=== PATIENT | female | born 1955 | race African-American/Black ===

== ENCOUNTER 2019-09-16 15:51 | Inpatient (IN) | payer MEDICAID ==
[~2019-09-16] VITALS: Ht 157.5 cm; Wt 21.8 kg
[2019-09-16] MEDS ORDERED: LORazepam 2 MG TABLET PO PRN (21:30)
[2019-09-16] MEDS ORDERED: ZOLPIDEM TARTRATE 10 MG TABLET PO PRN (21:30)
[2019-09-16 21:45] VITALS: BP 129/60
[2019-09-16] MEDS ORDERED: PNEUMOCOCCAL VACCINE POLYVALENT 0.5 ML VIAL [PPSV23] IM ONE (22:00)
[2019-09-17 00:31] VITALS: BP 111/71
[2019-09-17] MEDS ORDERED: MAG HYDROX/AL HYDROX/SIMETH ES 30 ML SUSPENSION UDCUP PO PRN (07:00)
[2019-09-17] MEDS ORDERED: MAGNESIUM HYDROXIDE SUSPENSION 30 ML UDCUP PO PRN (07:00)
[2019-09-17] MEDS ORDERED: PETROLATUM,WHITE 28 GM JELLY TP PRN (07:00)
[2019-09-17] MEDS ORDERED: CloNIDine HCL 0.1 MG TABLET PO PRN (07:00)
[2019-09-17] MEDS ORDERED: DOCUSATE SODIUM 100 MG CAPSULE PO PRN (07:00)
[2019-09-17] MEDS ORDERED: BENZOCAINE/MENTHOL LOZENGE MM PRN (07:00)
[2019-09-17] MEDS ORDERED: LOPERAMIDE HCL 2 MG CAPSULE PO PRN (07:00)
[2019-09-17] MEDS ORDERED: IBUPROFEN 600 MG TABLET PO PRN (07:00)
[2019-09-17] MEDS ORDERED: OMEPRAZOLE 20 MG CAPSULE PO PRN (07:00)
[2019-09-17] MEDS ORDERED: ALBUTEROL SULFATE HFA 90 MCG/PUFF 8 GM INHALER IH PRN (07:00)
[2019-09-17] MEDS ORDERED: BACITRACIN 28.4 GM OINTMENT TP PRN (07:00)
[2019-09-17] MEDS ORDERED: ONDANSETRON HCL 4 MG TABLET PO PRN (07:00)
[2019-09-17] MEDS ORDERED: ACETAMINOPHEN 325 MG TABLET PO PRN (07:00)
[2019-09-17 08:00] VITALS: BP 109/64
[2019-09-17 09:08] LABS: EOSINOPHILS % (AUTO) 4.9 % (1.0-6.0); HEMATOCRIT 31.7 % (36-46); HEMOGLOBIN 10.6 g/dL (12.0-16.0); LYMPHOCYTES # (AUTO) 3.3 K/uL (1.0-4.8); MEAN CORPUSCULAR HEMOGLOBIN 31.3 pg (26.0-34.0); MEAN CORPUSCULAR HGB CONC 33.5 G/dL (31.0-37.0); MEAN CORPUSCULAR VOLUME 93 fL (80-100); MONOCYTES # (AUTO) 0.3 K/uL (0.1-1.0); MONOCYTES % (AUTO) 5.6 % (2.0-9.0); NEUTROPHILS # (AUTO) 2.1 K/uL (1.8-7.7); NEUTROPHILS % (AUTO) 34.5 % (40.0-70.0); PLATELET COUNT (AUTO) 157 K/uL (150-450); RED CELL DISTRIBUTION WIDTH 13.9 % (11.5-14.5)
[2019-09-17] MEDS: MIDODRINE HCL 5 MG TABLET PO SCH ×2 (09:20→13:00)
[2019-09-17] MEDS: OLANZapine 5 MG RAPDIS TABLET PO SCH ×2 (09:21→20:39)
[2019-09-17] MEDS: ASPIRIN 81 MG EC TABLET PO SCH (09:21)
[2019-09-17 09:42] LABS: ALANINE AMINOTRANSFERASE 16 U/L (12-78); ALBUMIN 3.5 g/dL (3.4-5.0); ALKALINE PHOSPHATASE 57 U/L (46-116); ANION GAP 10 mmol/L (8-16); ASPARTATE AMINOTRANSFERASE 14 U/L (15-37); BILIRUBIN,TOTAL 0.4 mg/dL (0.1-1.0); CALCIUM, TOTAL 8.8 mg/dL (8.8-10.5); CARBON DIOXIDE 27 mmol/L (22-29); CHLORIDE 109 mmol/L (98-107); CHOL/HDL RATIO 2.7 (3.9-5.7); CHOLESTEROL 130 mg/dL (131-200); CREATININE 0.59 mg/dL (0.60-1.30); FREE T4 (FREE THYROXINE) 1.11 ng/dL (0.76-1.46); GLOMERULAR FILTR. RATE CALC > 60 mL/min (>60); GLUCOSE,RANDOM 80 mg/dL (70-110); HDL CHOLESTEROL 49 mg/dL (40-60); LDL CHOL (CALC.) 67 mg/dL (0-130); POTASSIUM 3.3 mmol/L (3.5-5.1); SODIUM SERUM 146 mmol/L (136-145); THYROID STIMULATING HORMONE 0.54 uIU/mL (0.36-3.74); TOTAL PROTEIN, SERUM 6.9 g/dL (6.4-8.2); TRIGLYCERIDES 71 mg/dL (15-150); UREA NITROGEN, BLOOD 5 mg/dL (7-18)
[2019-09-17] MEDS ORDERED: POTASSIUM CHLORIDE 20 MEQ ER TABLET PO ONE (14:45)
[2019-09-17 16:00] VITALS: BP 102/59
[2019-09-17] MEDS: MIRTAZAPINE 15 MG TABLET PO SCH (20:39)
[2019-09-18 07:26] LABS: MAGNESIUM 1.8 mg/dL (1.80-2.40); PHOSPHORUS 3.3 mg/dL (2.5-4.9); POTASSIUM 3.4 mmol/L (3.5-5.1)
[2019-09-18 08:00] VITALS: BP 109/63
[2019-09-18] MEDS: OLANZapine 5 MG RAPDIS TABLET PO SCH ×2 (09:45→20:25)
[2019-09-18] MEDS: ASPIRIN 81 MG EC TABLET PO SCH (09:45)
[2019-09-18] MEDS: MIRTAZAPINE 15 MG TABLET PO SCH (20:36)
[2019-09-18] MEDS ORDERED: PALIPERIDONE PALMITATE 234 MG/1.5 ML SYRINGE IM ONE (21:00)
[2019-09-19] MEDS: ASPIRIN 81 MG EC TABLET PO SCH (08:49)
[2019-09-19 10:51] VITALS: BP 99/60
[2019-09-19 16:00] VITALS: BP 115/58
[2019-09-19] MEDS: OLANZapine 5 MG RAPDIS TABLET PO SCH (20:25)
[2019-09-19] MEDS: MIRTAZAPINE 15 MG TABLET PO SCH (20:25)
[2019-09-20] VITALS: BP 126/55
[2019-09-20 08:00] VITALS: BP 106/67
[2019-09-20] MEDS: ASPIRIN 81 MG EC TABLET PO SCH (08:14)
[2019-09-20 16:00] VITALS: BP 97/59
[2019-09-20] MEDS: OLANZapine 5 MG RAPDIS TABLET PO SCH (20:06)
[2019-09-20] MEDS: MIRTAZAPINE 15 MG TABLET PO SCH (20:06)
[2019-09-21] MEDS: ASPIRIN 81 MG EC TABLET PO SCH (08:23)
[2019-09-21 08:41] VITALS: BP 111/50
[2019-09-21 09:37] VITALS: BP 111/50
[2019-09-21] MEDS ORDERED: MIRT-89 PO (15:10)
[2019-09-21] MEDS ORDERED: OLAN5TAB30 PO (15:10)
[2019-09-21 16:01] VITALS: BP 113/60
[2019-09-21] MEDS: MIRTAZAPINE 15 MG TABLET PO SCH (20:15)
[2019-09-21] MEDS: OLANZapine 5 MG RAPDIS TABLET PO SCH (20:15)
[2019-09-22 08:00] VITALS: BP 107/49
[2019-09-22] MEDS ORDERED: POTASSIUM CHLORIDE 20 MEQ ER TABLET PO ONE (08:15)
[2019-09-22] MEDS ORDERED: PALIPERIDONE PALMITATE 156 MG/ML SYRINGE IM ONE (09:00)
[2019-09-22] MEDS: ASPIRIN 81 MG EC TABLET PO SCH (10:48)
[2019-09-22] MEDS ORDERED: ASPI-1111 PO (12:33)
== END 2019-09-22 19:30 | DRG 885 ==
LOC: 3EI 20:00
PROVIDERS: ADMIT Psychiatry & Neurology Psychiatry; ATTEND Psychiatry & Neurology Psychiatry
DX: F20.0 Paranoid schizophrenia (principal); E87.0 Hyperosmolality and hypernatremia; K21.9 Gastro-esophageal reflux disease without esophagitis; G47.00 Insomnia, unspecified; I10 Essential (primary) hypertension; K59.00 Constipation, unspecified; M19.90 Unspecified osteoarthritis, unspecified site; R62.7 Adult failure to thrive; F41.9 Anxiety disorder, unspecified; E87.6 Hypokalemia; Z91.19 Patient's noncompliance with other medical treatment and regimen; Z88.0 Allergy status to penicillin; Z03.818 Encounter for observation for suspected exposure to other biological agents ruled out
CPT/HCPCS: 83735; 84100; 84132; 84439; 84443; 86592; 87081; 93005

== ENCOUNTER 2020-05-05 21:06 | Emergency (ER) | payer MEDICAID, OTHER ==
[~2020-05-05] VITALS: Ht 149.9 cm; Wt 58.6 kg
[~2020-05-05 21:06] MED LIST: ASPI-1111 PO; MIRT-89 PO; OLAN5TAB30 PO
[2020-05-05 23:26] VITALS: BP 132/70
== END 2020-05-05 23:28 | disposition home or self-care (01) ==
LOC: EMS 21:06
DX: F20.9 Schizophrenia, unspecified (principal); F41.9 Anxiety disorder, unspecified; K21.9 Gastro-esophageal reflux disease without esophagitis; I10 Essential (primary) hypertension; Z88.0 Allergy status to penicillin; Z79.82 Long term (current) use of aspirin
CPT/HCPCS: 99283